=== PATIENT | male | born 1940 | race Caucasian/White ===

== ENCOUNTER → 2021-05-23 | Outpatient (CLI) | payer OTHER ==
[~2021-05-23] VITALS: Ht 175.3 cm; Wt 71.7 kg
[~2021-05-23] MED LIST: ALISKIREN150 MG PO; ARICEPT10 M1 PO; ASPIRIN EC81 M1 PO; ATORVASTATIN CA80 MG PO; CALCIUM 600 +1 EAC1 PO; CARVEDILOL25 MG PO; CLONIDINE0.1 PO; FISH OIL 1,0001 EAC5 PO; FOSAMAX 70 MG T70 M1 PO; GUANFACINE HCL2 MG PO; JANUVIA100 MG PO; KLOR-CON 10 ER10 MEQ PO; LASIX 20 MG TAB20 MG PO; LEXAPRO 10 MG T10 M1 PO; LIPITOR20 MG PO; LYRICA100 MG PO; ONGLYZA5 MG PO; TEKTURNA HCT 11 EACH PO; TORSEMIDE20 MG PO; TRICOR145 MG PO; VITAMIN D32000 UNI1 PO
--- NOTE | 2021-05-24 16:06 | PATH ---
[facility] [address] [place] [address] PATHOLOGY RPT PROCEDURE Name: BURNSJES GOMEZ Room #: REG SILVIA [place].#: [id number] Admission: 05/23/21 Date of : 36 Discharge: Report #: [id number] Path Case #: [id number] [facility] Accession Number: [id number] . 01 Material submitted: . PART A: duodenum - DUODENAL BIOPSY R/O C. SPRUE PART B: stomach - ANTRUM BIOPSY R/O H. PYLORI . 01 Clinical history: . EGD/COLONOSCOPY/WT LOSS ABD PAIN/HX CRC . 02 Diagnosis: A. Small bowel mucosa, duodenum rule out sprue, endoscopic biopsy: - No diagnostic abnormalities. - Negative for villous blunting or increase in intraepithelial lymphocytes. . B. Gastric mucosa, antrum rule out H. pylori, endoscopic biopsy: - Helicobacter pylori induced moderate active gastritis. - Negative for intestinal metaplasia or atrophy. - Moderate number of Helicobacter pylori organisms present on the properly controlled immunohistochemical stain. (IUV/db; 05/24/2021) [facility] 05/24/2021 1316 Local . 02 Electronically signed: . Laverne Jasso MD, Pathologist NPI- [id number] . 01 Gross description: . A. The specimen is received in formalin, labeled "Jes Burns, duodenal BX". Received are 2 segments of pale castillo tissue ranging in size from 0.3 to 0.4 cm in maximum dimensions. The specimen is submitted entirely in cassette A1. . B. The specimen is received in formalin, labeled "Jes Burns, antral BX". Received are 2 segments of pale castillo tissue ranging in size from 0.2 cm to 0.3 cm in maximum dimensions. The specimen is submitted entirely in cassette B1.([facility]; 05/23/2021) [facility] 05/23/2021 1619 Local . 02 Pathologist provided ICD-10: K29.50 . 02 CPT . 356276, [id number], [id number] Specimen Comment: A courtesy copy of this report has been sent to [phone], [address] [address] PATHOLOGY RPT PROCEDURE Name: JES BURNS Room #: REG CLGhulam Yañez#: [id number] Admission: 05/23/21 Date of : 36 Discharge: Report #: [id number] Path Case #: [id number] Specimen Comment: [id number] Specimen Comment: Report sent to / DR BOSS Performed at: [address], [place], [place] [id number] MD Fernando Wynne MD Phone: [phone] Performed at: [address] [id number] MD Laverne Jasso MD Phone: [phone]
== END | disposition home or self-care (01) ==
LOC: GI 08:59
PROVIDERS: ATTEND Internal Medicine Gastroenterology
DX: R10.84 Generalized abdominal pain (principal); R63.4 Abnormal weight loss; K57.30 Diverticulosis of large intestine without perforation or abscess without bleeding; K64.8 Other hemorrhoids; K29.00 Acute gastritis without bleeding; B96.81 Helicobacter pylori [H. pylori] as the cause of diseases classified elsewhere; K44.9 Diaphragmatic hernia without obstruction or gangrene; I11.0 Hypertensive heart disease with heart failure; I50.9 Heart failure, unspecified; E11.9 Type 2 diabetes mellitus without complications; E78.00 Pure hypercholesterolemia, unspecified; F03.90 Unspecified dementia, unspecified severity, without behavioral disturbance, psychotic disturbance, mood disturbance, and anxiety; Z98.890 Other specified postprocedural states; Z85.038 Personal history of other malignant neoplasm of large intestine; Z79.899 Other long term (current) drug therapy; Z90.49 Acquired absence of other specified parts of digestive tract; Z95.0 Presence of cardiac pacemaker; Z79.01 Long term (current) use of anticoagulants; Z95.2 Presence of prosthetic heart valve
CPT/HCPCS: 62110; 62900